=== PATIENT | female | born 1980 | race Caucasian/White ===

== ENCOUNTER 2018-10-16 11:30 | Emergency (ER) | payer SELFPAY ==
[~2018-10-16] VITALS: Ht 157.5 cm; Wt 87.8 kg
[~2018-10-16 11:30] MED LIST: MECL-77 PO; NAPR-985 PO; ONDA4TAB14 PO; ONDA4TAB35 PO; SIME80TA53 PO
[2018-10-16 11:34] VITALS: BP 133/75; PULSE 74; RESP 16; Ht 157.5 cm; Wt 87.8 kg
[2018-10-16] MEDS ORDERED: SOD CHLORIDE 0.9% 1,000 ML IV STA (11:46)
[2018-10-16] MEDS ORDERED: ONDANSETRON 4 MG INJ IV STA (11:46)
[2018-10-16] MEDS ORDERED: KETOROLAC 30 MG INJ IV STA (11:46)
--- NOTE | 2018-10-16 13:56 | ERD ---
ER Documentation Chief Complaint Chief Complaint pt is bib self with c/o left sided abd pain since 3 am HPI 38-year-old female presenting with left-sided abdominal pain since this morning. Patient denies any nausea vomiting no changes in urination but did have a few episodes of diarrhea. Patient is unsure if she ate something irritated her stomach last night. Denies any fevers. Has not taken medications for symptoms. Medical history denies. Surgical history denies. Social history denies ROS All systems reviewed and are negative except as per history of present illness. Medications Home Meds Active Scripts Simethicone (GAS RELIEF) 80 Mg Tab.chew, 80 MG PO DAILY, #30 TAB.CHEW Prov:LISA WASSERMAN PA-C 10/16/18 Ondansetron (Ondansetron Odt) 4 Mg Tab.rapdis, 4 MG PO Q6H PRN for NAUSEA AND/OR VOMITING, #10 TAB Prov:LISA WASSERMAN PA-C 10/16/18 Naproxen* (Naprosyn*) 500 Mg Tablet, 500 MG PO BID PRN for PAIN AND/OR INFLAMMATION, #30 TAB Prov:LISA WASSERMAN PA-C 10/16/18 Ondansetron Hcl* (Zofran* ODT) 4 mg -ODT Tab.disper, 4 MG PO Q4H PRN for NAUSEA AND OR VOMITING, #10 TAB Prov:AMARILYS DESAI PA-C 07/05/15 Meclizine Hcl* (Meclizine Hcl*) 25 Mg Tablet, 25 MG PO Q8H for VOMITTING, #30 TAB Prov:AMARILYS DESAI PA-C 07/05/15 Allergies Allergies: Coded Allergies: No Known Allergy (Unverified , 02/19/14) PMhx/Soc History of Surgery: Yes (c/s) Anesthesia Reaction: No Hx Neurological Disorder: No Hx Respiratory Disorders: No Hx Cardiac Disorders: No Hx Psychiatric Problems: No Hx Miscellaneous Medical Probl: No Hx Alcohol Use: No Hx Substance Use: No Hx Tobacco Use: No FmHx Family History: No diabetes, No coronary disease, No other Physical Exam Vitals Vital Signs Date Temp Pulse Resp B/P (MAP) Pulse Ox O2 O2 Flow FiO2 Time Delivery Rate 10/16/18 98.3 74 16 133/75 99 11:34 (94) Physical Exam GENERAL: The patient is well-appearing, well-nourished, in no acute distress HEENT: Atraumatic. Conjunctivae are pink. Pupils equal, round, and reactive to light. There is no scleral icterus. Tympanic membranes clear bilaterally. Oropharynx clear. CHEST: Clear to auscultation bilaterally. There are no rales, wheezes or rhonchi. HEART: Regular rate and rhythm. No murmurs, clicks, rubs or gallops. ABDOMEN:Soft, nontender and nondistended. Good bowel sounds. No rebound or guarding. No gross peritonitis. No gross organomegaly or masses. BACK: No midline or flank tenderness. Result Diagram: 10/16/18 1230 10/16/18 1230 Results 24 hrs Laboratory Tests Test 10/16/18 12:15 10/16/18 12:30 Bedside Urine pH (LAB) 7.0 Bedside Urine Protein (LAB) Negative Bedside Urine Glucose (UA) Negative Bedside Urine Ketones (LAB) Negative Bedside Urine Blood Trace-lysed Bedside Urine Nitrite (LAB) Negative Bedside Urine Leukocyte Esterase (L Negative POC Beta HCG, Qualitative NEGATIVE White Blood Count 9.6 10^3/ul Red Blood Count 4.97 10^6/ul Hemoglobin 12.8 g/dl Hematocrit 40.1 % Mean Corpuscular Volume 80.7 fl Mean Corpuscular Hemoglobin 25.8 pg Mean Corpuscular Hemoglobin Concent 31.9 g/dl Red Cell Distribution Width 13.4 % Platelet Count 134 10^3/UL Mean Platelet Volume 11.4 fl Immature Granulocytes % 0.300 % Neutrophils % 71.9 % Lymphocytes % 20.2 % Monocytes % 5.3 % Eosinophils % 1.8 % Basophils % 0.5 % Nucleated Red Blood Cells % 0.0 /100WBC Immature Granulocytes # 0.030 10^3/ul Neutrophils # 6.9 10^3/ul Lymphocytes # 2.0 10^3/ul Monocytes # 0.5 10^3/ul Eosinophils # 0.2 10^3/ul Basophils # 0.1 10^3/ul Nucleated Red Blood Cells # 0.0 10^3/ul Sodium Level 139 mmol/L Potassium Level 4.0 mmol/L Chloride Level 101 mmol/L Carbon Dioxide Level 29 mmol/L Anion Gap 9 Blood Urea Nitrogen 7 mg/dl Creatinine 0.44 mg/dl Est Glomerular Filtrat Rate mL/min > 60 mL/min Glucose Level 94 mg/dl Calcium Level 9.4 mg/dl Total Bilirubin 0.6 mg/dl Direct Bilirubin 0.00 mg/dl Indirect Bilirubin 0.6 mg/dl Aspartate Amino Transf (AST/SGOT) 30 IU/L Alanine Aminotransferase (ALT/SGPT) 41 IU/L Alkaline Phosphatase 122 IU/L Total Protein 8.2 g/dl Albumin 4.3 g/dl Globulin 3.90 g/dl Albumin/Globulin Ratio 1.10 Lipase 54 U/L Current Medications Medications Dose Sig/Saturnino Start Time Status Last (Trade) Ordered Route PRN Stop Time Admin Dose Reason Admin Sodium 1,000 ml @ Q1H STAT 10/16/18 DC Chloride 1,000 mls/hr IV 11:46 10/16/18 11:49 Ondansetron 4 mg ONCE STAT 10/16/18 DC HCl (Zofran IV 11:46 Inj) 10/16/18 11:49 Ketorolac 30 mg ONCE STAT 10/16/18 DC Tromethamine IV 11:46 (Toradol) 10/16/18 11:49 Procedures/MDM EKG: Rate/Rhythm: 71 bpm Normal Sinus Rhythm QRS, ST, T-waves: No changes consistent w/ acute ischemia Impression: No evidence of ischemia or arrhythmia ER course: Urinalysis negative. MDM: 38-year-old female presenting with left upper quadrant pain x1 day. Patient's exam is nonspecific and I do not feel blood work or imaging is indicated. I have considered cardiac versus pulmonary abnormalities however patient has normal vitals and is nontoxic-appearing. Patient is afebrile. I have considered acute abdominal emergency versus pelvic abnormalities but have low suspicion. I do not feel blood work or imaging is indicated. Patient is discharged with supportive medications and told to follow-up with primary care. Patient is told if symptoms change or worsen to return immediately to the ER. All questions answered at discharge Departure Diagnosis: Primary Impression: Abdominal pain Condition: Stable Patient Instructions: Abdominal Pain Referrals: [facility] YOU HAVE RECEIVED A MEDICAL SCREENING EXAM AND THE RESULTS INDICATE THAT YOU DO NOT HAVE A CONDITION THAT REQUIRES URGENT TREATMENT IN THE EMERGENCY DEPARTMENT. FURTHER EVALUATION AND TREATMENT OF YOUR CONDITION CAN WAIT UNTIL YOU ARE SEEN IN YOUR DOCTORS OFFICE WITHIN THE NEXT 1-2 DAYS. IT IS YOUR RESPONSIBILITY TO MAKE AN APPOINTMENT FOR FOLOW-UP CARE. IF YOU HAVE A PRIMARY DOCTOR --you should call your primary doctor and schedule an appointment IF YOU DO NOT HAVE A PRIMARY DOCTOR YOU CAN CALL OUR PHYSICIAN REFERRAL HOTLINE AT IF YOU CAN NOT AFFORD TO SEE A PHYSICIAN YOU CAN CHOSE FROM THE FOLLOWING [facility] [id number] [facility] [address] [facility] [address] [facility] [address] [facility] [address] [facility] [facility]. [address] Additional Instructions: FOLLOW UP WITH YOUR PRIMARY CARE PHYSICIAN TOMORROW.Return to this facility if you are not improving as expected. LISA WASSERMAN PA-C Oct 16, 2018 13:56
== END 2018-10-16 13:45 | disposition home or self-care (01) ==
LOC: FTE 11:30
DX: R10.9 Unspecified abdominal pain (principal)
CPT/HCPCS: 80053; 81003; 81025; 83690; 85025; 93005; 99284; J7030